=== PATIENT | male | born 1975 | race Caucasian/White ===

== ENCOUNTER 2018-07-27 20:56 | Emergency (ER) | payer BC ==
[~2018-07-27] VITALS: Ht 185.4 cm; Wt 113.4 kg
== END 2018-07-28 02:55 | disposition left against medical advice (07) ==
LOC: ER 20:56 → EDBD 21:37 → ER 21:37
DX: S20.211A Contusion of right front wall of thorax, initial encounter (principal); J90 Pleural effusion, not elsewhere classified; J98.11 Atelectasis; R91.8 Other nonspecific abnormal finding of lung field; V19.3XXA Pedal cyclist (driver) (passenger) injured in unspecified nontraffic accident, initial encounter; Y93.55 Activity, bike riding; Y92.89 Other specified places as the place of occurrence of the external cause; Y99.8 Other external cause status

== ENCOUNTER 2018-07-28 10:02 | Inpatient (IN) | payer BC ==
[~2018-07-28] VITALS: Ht 188 cm; Wt 113.4 kg
== END 2018-07-31 15:29 | disposition left against medical advice (07) | DRG 193 ==
LOC: ER 10:02 → MEDJ 18:10
PROC: 3E0F7GC Introduction of Other Therapeutic Substance into Respiratory Tract, Via Natural or Artificial Opening (ICD-10-PCS; 2018-07-28)
PROC: B246ZZZ Ultrasonography of Right and Left Heart (ICD-10-PCS; 2018-07-29)
PROC: BB24Y0Z Computerized Tomography (CT Scan) of Bilateral Lungs using Other Contrast, Unenhanced and Enhanced (ICD-10-PCS; 2018-07-29)
PROC: 0W993ZX Drainage of Right Pleural Cavity, Percutaneous Approach, Diagnostic (ICD-10-PCS; principal; 2018-07-30)
DX: J18.9 Pneumonia, unspecified organism (principal); S27.1XXA Traumatic hemothorax, initial encounter; J91.8 Pleural effusion in other conditions classified elsewhere; J98.11 Atelectasis; S20.211A Contusion of right front wall of thorax, initial encounter; W18.39XA Other fall on same level, initial encounter; Y93.55 Activity, bike riding; Y92.89 Other specified places as the place of occurrence of the external cause; Y99.8 Other external cause status; I10 Essential (primary) hypertension; I51.7 Cardiomegaly
CPT/HCPCS: 71275

== ENCOUNTER 2018-08-03 12:10 | Outpatient (CLI) | payer BC | END 2018-08-03 12:20 | disposition home or self-care (01) | LOC: RAD 12:10 | DX: J90 Pleural effusion, not elsewhere classified (principal) ==

== ENCOUNTER 2018-08-06 12:34 | Outpatient (CLI) | payer BC ==
[2018-08-06] MEDS ORDERED: METROPOLOL (16:36)
== END 2018-08-06 12:43 | disposition home or self-care (01) ==
LOC: LAB 12:34
DX: R06.02 Shortness of breath (principal); J90 Pleural effusion, not elsewhere classified

== ENCOUNTER 2018-08-06 13:55 | Outpatient (CLI) | payer BC ==
[2018-08-06] MEDS ORDERED: METROPOLOL (16:36)
== END 2018-08-06 15:58 | disposition home or self-care (01) ==
LOC: RAD 501 13:55
DX: J90 Pleural effusion, not elsewhere classified (principal); R07.89 Other chest pain

== ENCOUNTER 2018-08-06 14:45 | Inpatient (IN) | payer BC ==
[~2018-08-06] VITALS: Ht 185.4 cm; Wt 113.4 kg
[2018-08-06] MEDS ORDERED: METROPOLOL (16:36)
== END 2018-08-12 11:21 | disposition home or self-care (01) | DRG 200 ==
LOC: ER 14:45 → ICU-2 16:22 → MEDJ 16:22 → SEC-K 08-08 16:42 → MEDJ 08-08 16:50
PROC: 0W9900Z Drainage of Right Pleural Cavity with Drainage Device, Open Approach (ICD-10-PCS; principal; 2018-08-06)
PROC: 4A12X4Z Monitoring of Cardiac Electrical Activity, External Approach (ICD-10-PCS; 2018-08-06)
PROC: BW24ZZZ Computerized Tomography (CT Scan) of Chest and Abdomen (ICD-10-PCS; 2018-08-07)
PROC: 3E0F7GC Introduction of Other Therapeutic Substance into Respiratory Tract, Via Natural or Artificial Opening (ICD-10-PCS; 2018-08-07)
PROC: 4A12X4Z Monitoring of Cardiac Electrical Activity, External Approach (ICD-10-PCS; 2018-08-09)
DX: S27.2XXA Traumatic hemopneumothorax, initial encounter (principal); J90 Pleural effusion, not elsewhere classified; I10 Essential (primary) hypertension

== ENCOUNTER 2018-08-28 13:06 | Outpatient (CLI) | payer BC ==
[~2018-08-28 13:06] MED LIST: METROPOLOL
== END 2018-08-28 13:14 | disposition home or self-care (01) ==
LOC: LAB 13:06
DX: R53.1 Weakness (principal); D64.89 Other specified anemias